=== PATIENT | female | born 1995 | race Caucasian/White ===

== ENCOUNTER → 2016-05-05 | Outpatient (CLI) | payer BC ==
[~2016-05-05] MED LIST: ACET-1256 PO; LEVO1TAB34 PO; OXYC1TAB3 PO; PRED20TA PO; PRVHFAIN INH; TRET0.0522 TOP
== END | disposition home or self-care (01) ==
LOC: C.LABPVFM 10:24
PROVIDERS: ATTEND Nurse Practitioner
DX: N39.0 Urinary tract infection, site not specified (principal)

== ENCOUNTER 2016-11-03 17:51 | Emergency (ER) | payer BC, OTHER ==
[~2016-11-03] VITALS: Ht 170.2 cm; Wt 56.7 kg
[~2016-11-03 17:51] MED LIST changes: -LEVO1TAB34 PO; -OXYC1TAB3 PO; -PRED20TA PO; -PRVHFAIN INH
[2016-11-03 18:05] VITALS: TEMP 37.8; Ht 170.2 cm; Wt 56.7 kg
[2016-11-03] MEDS ORDERED: ALBUT/IPRATROP 3MG/0.5MG NEB 3 ML VIAL INH STA ×2 (18:16→19:52)
--- NOTE | 2016-11-03 19:25 | DIAGNOSTIC IMAGING REPORT ---
CHEST 2 VIEWS ROUTINE CLINICAL HISTORY: 21 years-old Female presenting with eval for pna, cough, chest pain. TECHNIQUE: PA and lateral views of the chest were obtained. COMPARISON: 02/01/2014. FINDINGS: Cardiomediastinal silhouette normal. Lungs and pleural spaces clear. Osseous structures normal. Upper abdomen normal. IMPRESSION: 1. No acute cardiopulmonary disease. Electronically signed by: Fransisco Chaparro M.D. 11/03/2016 7:24 PM Dictated Date/Time: 11/03/2016 7:23 PM
[2016-11-03] MEDS ORDERED: ALBUTEROL HFA 8 GM INHALER INH STA (20:37)
[2016-11-03] MEDS ORDERED: PRED20TA PO (20:38)
[2016-11-03 20:41] VITALS: BP 115/68; PULSE 94; O2SAT 96
--- NOTE | 2016-11-03 20:43 | EMERGENCY ROOM VISIT NOTE ---
History Report prepared by Remigio: Kvng Hoffman Under the Supervision of: Dr. Cleve Ferro M.D. First contact with patient: 18:09 Chief Complaint: FLU LIKE SX Stated Complaint: FLU SYMPTOMS History of Present Illness The patient is a 21 year old female who presents to the Emergency Room with complaints of a persistent illness that started 5 days ago. She says that she has been really weak, with a very tight throat. The patient adds that she has had a hacking cough, and has been running a fever that has been as high as 102. Per the patient's mother, the patient has not been able to sleep or eat. The patient states that she has been unable to eat because of a decreased appetite, and food is not appetizing to her. She denies any vomiting or urinary symptoms. The patient says that she has no chance of . She states that she smokes a half a pack of cigarettes per day. She has no history of asthma. Source of History: patient, parent Onset: 5 days ago Position: other (global - illness) Timing: other (persistent) Associated Symptoms: + fevers, + cough, + weakness, No vomiting, No urinary symptoms Note: Associated symptoms: Very tight throat. Unable to eat or sleep. Review of Systems See HPI for pertinent positives & negatives. A total of 10 systems reviewed and were otherwise negative. Past Medical & Surgical Medical Problems: (1) Bruising (2) Depressive Disorder Nec (3) Nausea, vomiting, and diarrhea (4) PROM (premature rupture of membranes) (5) Supervision of other normal (6) Vomiting Family History No pertinent family history Social History Smoking Status: Current Every Day Smoker Alcohol Use: none Drug Use: none Marital Status: single Housing Status: lives with family Current/Historical Medications Scheduled Prednisone (Prednisone), 3 TAB PO DAILY Allergies Coded Allergies: Nickel (Verified Allergy, Unknown, ., 11/03/16) Penicillins (Verified Allergy, Unknown, 11/03/16) Physical Exam Vital Signs Date Time Temp Pulse Resp B/P (MAP) Pulse Ox O2 Delivery O2 Flow Rate FiO2 11/03/16 20:00 110 19 124/67 95 Room Air 11/03/16 18:05 37.8 109 17 113/77 92 Room Air Physical Exam Constitutional: Vital signs reviewed. Eyes: Pupils are equal round reactive to light. Conjunctiva are noninjected. ENT: Mild erythema to throat without exudate. Mucous membranes are moist. Neck supple without meningeal signs. Respiratory: Bilateral expiratory wheezing. Breath sounds are equal bilaterally. Cardiovascular: Regular rate and rhythm. No rubs or gallops. GI: Soft, nondistended and nontender. Bowel sounds are present. No organomegaly. Musculoskeletal: No peripheral edema. No lower extremity tenderness. Integumentary: No cyanosis. Neurological: The patient is awake and alert. No focal deficits. Psychiatric: Normal affect. Medical Decision & Procedures ER Provider Diagnostic Interpretation: X-ray results as stated below per interpretation by me and the radiologist: CHEST 2 VIEWS ROUTINE CLINICAL HISTORY: 21 years-old Female presenting with eval for pna, cough, chest pain. TECHNIQUE: PA and lateral views of the chest were obtained. COMPARISON: 02/01/2014. FINDINGS: Cardiomediastinal silhouette normal. Lungs and pleural spaces clear. Osseous structures normal. Upper abdomen normal. IMPRESSION: 1. No acute cardiopulmonary disease. Electronically signed by: Fransicso Chaparro M.D. 11/03/2016 7:24 PM Dictated Date/Time: 11/03/2016 7:23 PM Laboratory Results Test 11/03/16 19:50 Laboratory results as reviewed by me. Medications Administered Medications (Trade) Dose Ordered Sig/Julius Route Start Time Stop Time Status Last Admin Dose Admin Albuterol/ Ipratropium (Duoneb) 3 ml NOW STAT INH 11/03/16 18:16 11/03/16 18:17 DC 11/03/16 18:25 3 ML Albuterol/ Ipratropium (Duoneb) 3 ml NOW STAT INH 11/03/16 19:52 11/03/16 19:53 DC 11/03/16 19:57 3 ML Prednisone (PredniSONE TAB) 60 mg NOW STAT PO 11/03/16 19:52 11/03/16 19:53 DC 11/03/16 19:57 60 MG ED Course 1810: The patient was evaluated in room C8. A complete history and physical exam was performed. 1815: Ordered Duoneb 3 ml INH. 1951: I reevaluated the patient and she is still wheezing. I discussed the x- ray with her, and recommended that she stop smoking. Medical Decision This is a 21-year-old female presents with fever, cough and sore throat. Differential diagnosis includes bronchitis, pneumonia, strep pharyngitis, viral syndrome, influenza. I did perform a limited focused review of portions of the patient's old chart on the electronic medical record. The patient has had no recent pertinent visits to this hospital. I did evaluate the patient as noted above. The patient is a smoker and has significant wheezing on exam. She was treated with a DuoNeb. The patient denies any chance of . I did order and personally review the patient' s Chest x-ray as described above. There is no evidence of pneumonia. I did obtain a rapid strep test which was negative. I did reassess the patient. She had continued wheezing and so was treated with another DuoNeb and prednisone 60 mg. I did reassess her again. Her wheezing is improved and her O2 saturations 94%. She is tachycardic from the DuoNebs. She did feel well enough for discharge. I did recommend follow up within 24 hours with her regular doctor. She was given an albuterol MDI and discharged with a prescription for prednisone. A flu swab is currently pending and we will notify her if it comes back positive. She is outside the window for Tamiflu. Medication Reconcilliation Current Medication List: was personally reviewed by me Blood Pressure Screening Patient's blood pressure: Normal blood pressure Impression Primary Impression: Acute bronchitis Additional Impression: Bronchospasm with bronchitis, acute Scribe Attestation The scribe's documentation has been prepared under my direct and personally reviewed by me in its entirety. I confirm that the note above accurately reflects all work, treatment, procedures, and medical decision making performed by me. Departure Information Prescriptions Prednisone (Prednisone) 20 Mg Tab 3 TAB PO DAILY, #12 TAB FOR 4 DAYS Prov: Cleve Ferro M.D. 11/03/16 Referrals No Doctor, Assigned (PCP) Patient Instructions My [facility] Additional Instructions You have been examined and treated today on an emergency basis only. This is not a substitute for, or an effort to provide, complete comprehensive medical care. It is impossible to recognize and treat all injuries or illnesses in a single emergency department visit. It is therefore important that you follow up closely with your physician within 24 hours. Call as soon as possible for an appointment. Return for worsening symptoms or if you develop chest pain, vomiting, or any other concerning symptoms. Problem Qualifiers Primary Impression: Acute bronchitis Bronchitis organism: unspecified organism Qualified Codes: J20.9 - Acute bronchitis, unspecified
[2016-11-13] MEDS ORDERED: PRVHFAIN INH (11:26)
[2016-11-13] MEDS ORDERED: LEVO1TAB34 PO (11:26)
== END 2016-11-03 20:48 | disposition home or self-care (01) ==
LOC: C.EDB 17:52 → C.EDC 20:48
DX: J20.9 Acute bronchitis, unspecified (principal); F17.210 Nicotine dependence, cigarettes, uncomplicated; F32.9 Major depressive disorder, single episode, unspecified

== ENCOUNTER 2016-11-12 00:37 | Inpatient (IN) | payer BC, OTHER ==
[~2016-11-12] VITALS: Ht 170.2 cm; Wt 60.6 kg
[~2016-11-12 00:37] MED LIST changes: -ACET-1256 PO; +PRED20TA PO; -TRET0.0522 TOP
[2016-11-12] MEDS ORDERED: SODIUM CHLORIDE 0.9% 1000ML 1,000 ML IV STA ×3 (01:11→03:40)
[2016-11-12] MEDS ORDERED: ONDANSETRON INJ 2 MG/ML 2 ML VIAL IV STA (01:11)
[2016-11-12 01:47] LABS: BASO % 0.1 %; BASO ABS # 0.01 K/uL (0-0.2); COMPLETE YES; HEMATOCRIT 38.7 % (37-47); IG% 0.3 %; LYMPH % 8.7 %; LYMPH ABS # 1.21 K/uL (1.2-3.4); MEAN CELL VOLUME 89.6 fL (80-100); MEAN CORPUSCULAR HEMOGLOBIN 31.9 pg (25-34); MEAN CORPUSCULAR HGB CONC 35.7 g/dl (32-36); MEAN PLATELET VOLUME 9.9 fL (7.4-10.4); MONO % 7.8 %; NEUT % 83.1 %; PLATELET COUNT 232 K/uL (130-400); RED BLOOD COUNT 4.32 M/uL (4.2-5.4); WHITE BLOOD COUNT 13.84 K/uL (4.8-10.8)
[2016-11-12] MEDS ORDERED: ACETAMINOPHEN IV 100 ML IV STA (01:57)
[2016-11-12 02:12] LABS: ALB/GLOB RATIO 0.4 (0.9-2); ALKALINE PHOSPHATASE 54 U/L (45-117); ALT/SGPT 11 U/L (12-78); BLOOD UREA NITROGEN 10 mg/dl (7-18); BUN/CREATININE RATIO 11.3 (10-20); CARBON DIOXIDE 27 mmol/L (21-32); CHLORIDE 98 mmol/L (98-107); CREATININE 0.89 mg/dl (0.60-1.20); GLUCOSE 111 mg/dl (70-99); SODIUM 132 mmol/L (136-145)
[2016-11-12 03:32] LABS: POTASSIUM 3.5 mmol/L (3.5-5.1)
[2016-11-12 03:48] LABS: URINE APPEARANCE CLOUDY (CLEAR); URINE BILIRUBIN NEG (NEG); URINE COLOR YELLOW; URINE EPITHELIAL CELL AUTO >30 /lpf (0-5); URINE NITRITE POS (NEG); URINE SPECIFIC GRAVITY 1.012 (1.000-1.030); UROBILINOGEN NEG (NEG); ZZUR CULT IF INDIC CLEAN CATCH YES
[2016-11-12 03:54] LABS: MANUAL MICROSCOPIC REQUIRED? NO; REVIEW REQ? NO
--- NOTE | 2016-11-12 04:12 | EMERGENCY ROOM VISIT NOTE ---
History First contact with patient: 01:05 Chief Complaint: NAUSEA Stated Complaint: NAUSEA, DEHYDRATED, 104 TEMP Nursing Triage Summary: patient reports sick for 2 weeks History of Present Illness The patient is a 21 year old female who presents to the Emergency Room with complaints of fever, abdominal pain. The patient states she was seen here 2 weeks ago and diagnosed with bronchitis. She was given steroids and an inhaler. She states that overall the cough seems to be improving but she reports flulike symptoms. She states her temperature at home was 104F. She has been vomiting and unable to eat or keep any fluids down. The patient has not taken any Tylenol or ibuprofen. She states she has also had some urinary symptoms. She complains primarily of flulike symptoms, arthralgias, myalgias and feeling malaise. The patient's family members have had upper respiratory infections but seemed to be improving. Review of Systems A 10 system review of systems was completed with positives and pertinent negatives listed in the HPI. Past Medical/Surgical History Medical Problems: (1) Bronchitis (2) Bruising (3) Depressive Disorder Nec (4) Nausea, vomiting, and diarrhea (5) PROM (premature rupture of membranes) (6) Supervision of other normal (7) Vomiting Family History No pertinent family history Social History Smoking Status: Current Every Day Smoker Alcohol Use: none Drug Use: none Marital Status: single Housing Status: lives with family Current/Historical Medications No Active Prescriptions or Reported Meds Physical Exam Vital Signs Date Time Temp Pulse Resp B/P (MAP) Pulse Ox O2 Delivery O2 Flow Rate FiO2 11/12/16 06:08 67 18 93/64 97 Room Air 11/12/16 04:51 67 18 99/58 99 Room Air 11/12/16 03:25 37.5 86 18 99/49 98 Room Air 11/12/16 00:41 39.5 127 16 111/69 94 Room Air Physical Exam VITALS: Vitals are noted on the nurse's note and reviewed by myself. Vital signs stable. The patient is febrile with a temperature of 39.5C. She is tachycardic. GENERAL: This is a 21-year-old female, in no acute distress, nondiaphoretic, well-developed well-nourished. SKIN: The skin was without rashes, erythema, edema, or bruising. There is no tenting of the skin. Capillary reflex less than 2 seconds. HEAD: Normocephalic atraumatic. EARS: The external ears are normal in appearance. EYES: Pupils equal round and reactive to light and accommodation. Conjunctivae without injection, sclerae without icterus. Extraocular movements intact. NOSE: Patent, turbinates without inflammation or discharge. No sinus tenderness. MOUTH: Mucous membranes moist. Tonsils are not enlarged. Pharynx without erythema or exudate. Uvula midline. Airway patent. Tongue does not deviate. NECK: Supple without nuchal rigidity. No lymphadenopathy. No thyromegaly. Cervical spine is nontender. No JVD. HEART: Regular rate and rhythm without murmurs gallops or rubs. LUNGS: Clear to auscultation bilaterally without wheezes, rales or rhonchi. No dullness to percussion. No retractions or accessory muscle use. ABDOMEN: Positive bowel sounds x 4. Soft, mild diffuse tenderness, nomasses or organomegaly. MUSCULOSKELETAL: No muscle atrophy, erythema, or edema noted. Full range of motion in all extremities. Normal gait. Strength 5/5 throughout. NEURO: Patient was alert and oriented to person place and time. No focal neurological deficits. Medical Decision & Procedures ER Provider Diagnostic Interpretation: ABD/PELVIS IV CONTRAST ONLY CT DOSE: 267.12 mGy.cm HISTORY: Pain. Fever. fever, abdominal pain, UTI TECHNIQUE: Multiaxial CT images of the abdomen and pelvis were performed following the use of intravenous contrast. A dose lowering technique was utilized adhering to the principles of ALARA. COMPARISON STUDY: 02/12/2014 FINDINGS: Minimal dependent basilar atelectasis. Mild splenomegaly. Liver is unremarkable in appearance. Gallbladder slightly contracted. Kidneys are somewhat heterogeneous in terms of enhancement. This raise the possibility of pyelonephritis. There is no evidence for hydronephrosis. Fluid colon as well as small bowel suggesting nonspecific nonobstructive ileus. Intrauterine device is present. Chronic sigmoid diverticulosis. Trace free fluid within the pelvic cul-de-sac possibly physiologic. IMPRESSION: 1. Heterogeneous enhancement of both kidneys raise the possibility of pyelonephritis. 2. Mild reactive bowel ileus. 3. Slightly contracted gallbladder. 4. Chronic sigmoid diverticulosis. 5. Normal appendix. [~ rep ct add3]] CHEST 2 VIEWS ROUTINE CLINICAL HISTORY: cough, fever COMPARISON STUDY: 11/03/2016 FINDINGS: The bones soft tissues and hemidiaphragms are normal. The cardiomediastinal silhouette is normal. The lungs are clear. The pulmonary vasculature is normal. IMPRESSION: Negative chest. Laboratory Results 11/12/16 01:34 Red Blood Count 4.32, Mean Corpuscular Volume 89.6, Mean Corpuscular Hemoglobin 31.9, Mean Corpuscular Hemoglobin Concent 35.7, Mean Platelet Volume 9.9, Neutrophils (%) (Auto) 83.1, Lymphocytes (%) (Auto) 8.7, Monocytes (%) (Auto) 7.8, Eosinophils (%) (Auto) 0.0, Basophils (%) (Auto) 0.1, Neutrophils # (Auto) 11.50, Lymphocytes # (Auto) 1.21, Monocytes # (Auto) 1.08, Eosinophils # (Auto) 0.00, Basophils # (Auto) 0.01 11/12/16 01:34 11/12/16 02:28 Test 11/12/16 01:34 11/12/16 01:52 11/12/16 02:28 11/12/16 03:36 White Blood Count 13.84 K/uL (4.8-10.8) Red Blood Count 4.32 M/uL (4.2-5.4) Hemoglobin 13.8 g/dL (12.0-16.0) Hematocrit 38.7 % (37-47) Mean Corpuscular Volume 89.6 fL (80-100) Mean Corpuscular Hemoglobin 31.9 pg (25-34) Mean Corpuscular Hemoglobin Concent 35.7 g/dl (32-36) Platelet Count 232 K/uL (130-400) Mean Platelet Volume 9.9 fL (7.4-10.4) Neutrophils (%) (Auto) 83.1 % Lymphocytes (%) (Auto) 8.7 % Monocytes (%) (Auto) 7.8 % Eosinophils (%) (Auto) 0.0 % Basophils (%) (Auto) 0.1 % Neutrophils # (Auto) 11.50 K/uL (1.4-6.5) Lymphocytes # (Auto) 1.21 K/uL (1.2-3.4) Monocytes # (Auto) 1.08 K/uL (0.11-0.59) Eosinophils # (Auto) 0.00 K/uL (0-0.5) Basophils # (Auto) 0.01 K/uL (0-0.2) RDW Standard Deviation 44.8 fL (36.4-46.3) RDW Coefficient of Variation 13.5 % (11.5-14.5) Immature Granulocyte % (Auto) 0.3 % Immature Granulocyte # (Auto) 0.04 K/uL (0.00-0.02) Anion Gap 7.0 mmol/L (3-11) Est Creatinine Clear Calc Drug Dose 88.1 ml/min Estimated GFR () 106.6 Estimated GFR (Non- 92.0 BUN/Creatinine Ratio 11.3 (10-20) Lactic Acid Level 0.8 mmol/L (0.4-2.0) Calcium Level 8.0 mg/dl (8.5-10.1) Total Bilirubin 0.7 mg/dl (0.2-1) Alanine Aminotransferase (ALT/SGPT) 11 U/L (12-78) Alkaline Phosphatase 54 U/L (45-117) Total Protein 6.5 gm/dl (6.4-8.2) Albumin 1.8 gm/dl (3.4-5.0) Globulin 4.7 gm/dl (2.5-4.0) Albumin/Globulin Ratio 0.4 (0.9-2) Lipase 60 U/L (73-393) Chemistry Specimen Hemolysis Influenza Type A Antigen Neg for Influ A (NEG) Influenza Type B Antigen Neg for Influ B (NEG) Aspartate Amino Transf (AST/SGOT) 12 U/L (15-37) Urine Color YELLOW Urine Appearance CLOUDY (CLEAR) Urine pH 7.0 (4.5-7.5) Urine Specific [place] 1.012 (1.000-1.030) Urine Protein 2+ (NEG) Urine Glucose (UA) NEG (NEG) Urine Ketones NEG (NEG) Urine Occult Blood 1+ (NEG) Urine Nitrite POS (NEG) Urine Bilirubin NEG (NEG) Urine Urobilinogen NEG (NEG) Urine Leukocyte Esterase SMALL (NEG) Urine WBC (Auto) >30 /hpf (0-5) Urine RBC (Auto) 5-10 /hpf (0-4) Urine Hyaline Casts (Auto) 1-5 /lpf (0-5) Urine Epithelial Cells (Auto) >30 /lpf (0-5) Urine Bacteria (Auto) 4+ (NEG) Urine Test NEG (NEG) Medications Administered Medications (Trade) Dose Ordered Sig/Julius Route Start Time Stop Time Status Last Admin Dose Admin Sodium Chloride 1,000 ml @ 999 mls/hr Q1H1M STAT IV 11/12/16 01:11 11/12/16 02:11 DC 11/12/16 01:49 999 MLS/HR Ondansetron HCl (Zofran Inj) 4 mg NOW STAT IV 11/12/16 01:11 11/12/16 01:14 DC 11/12/16 01:48 4 MG Acetaminophen 100 ml @ 400 mls/hr Q8H STAT IV 11/12/16 01:57 11/12/16 02:11 DC 11/12/16 02:22 400 MLS/HR Sodium Chloride 1,000 ml @ 999 mls/hr Q1H1M STAT IV 11/12/16 01:58 11/12/16 02:58 DC 11/12/16 02:22 999 MLS/HR Sodium Chloride 1,000 ml @ 999 mls/hr Q1H1M STAT IV 11/12/16 03:40 11/12/16 04:40 DC 11/12/16 03:48 999 MLS/HR Aztreonam 2000 mg/ Dextrose 110 ml @ 100 mls/hr ONE STAT IV 11/12/16 04:57 11/12/16 06:02 DC 11/12/16 06:06 100 MLS/HR ED Course The patient was seen and examined. Previous visits were reviewed. The patient was febrile. She has a leukocytosis of 13.84. She does not have any significant electrolyte abnormality. Lipase is not elevated. Urinalysis suggests urinary tract infection. Urine test was negative. Influenza was negative. Chest x-ray does not reveal any acute abnormality CT scan of the abdomen and pelvis with IV contrast reveals pyelonephritis The patient presents to the emergency department with fever, tachycardia, leukocytosis and pyelonephritis. She is vomiting. I do not feel that she will tolerate outpatient management very well. She was hydrated with normal saline solution. She was given IV Zofran. She was given IV Tylenol. She was started azetrenam. The case was discussed with hospitalist service and they will evaluate the patient The case was also discussed with Dr. Rothman who agrees with the assessment and management plan Medical Decision DIFFERENTIAL DIAGNOSIS: Hepatitis, cholecystitis, cholangitis, biliary colic, pancreatitis, pneumonia, subdiaphragmatic abscess, appendicitis, inguinal hernia , nephrolithiasis, inflammatory bowel disease, mesenteric adenitis, peptic ulcer disease, GERD, gastritis, pancreatitis, myocardial infarction, pericarditis, ruptured aortic aneurysm, appendicitis, gastroenteritis, bowel obstruction, splenic infarct, diverticulitis, mesenteric ischemia, metabolic, peritonitis, among others. Medication Reconcilliation Current Medication List: was personally reviewed by me Blood Pressure Screening Patient's blood pressure: Normal blood pressure Blood pressure disposition: Did not require urgent referral Impression Primary Impression: Acute pyelonephritis Departure Information Dispostion Admitted as an inpatient Prescriptions No Active Prescriptions or Reported Meds Referrals No Doctor, Assigned (PCP) [facility]
[2016-11-12] MEDS ORDERED: OPTIRAY 320 IV PRN (04:30)
[2016-11-12] MEDS ORDERED: AZTREONAM IV 2,000 MG in DEXTROSE 5% 100ML 100 ML IV STA (04:57)
[2016-11-12 06:13] LABS: PREG INTERNAL NEGATIVE QC NEG CLEAR BACKGROUND; PREG INTERNAL POSITIVE QC POS CONTROL LINE
[2016-11-12] MEDS ORDERED: ZOLPIDEM TARTRATE 5 MG TAB PO PRN (06:15)
[2016-11-12] MEDS ORDERED: ONDANSETRON INJ 2 MG/ML 2 ML VIAL IV PRN (06:30)
--- NOTE | 2016-11-12 06:43 | History and Physical ---
History & Physical Date & Time of Service: Nov 12, 2016 at 06:36 Chief Complaint: Nausea, Dehydrated, 104 Temp Primary Care Physician: No Doctor, Assigned History of Present Illness Source: patient, family, hospital records The patient is a 21-year-old female who presents emergency department with complaint of fever, abdominal pain, productive cough, generalized myalgias and arthralgias. She was seen in the emergency department 2 weeks ago, diagnosed with bronchitis, and given steroids and inhaler. She's had some improvement in the cough, but is having worsening flulike symptoms, had temperature of 104F at home. She more recently has developed vomiting and is unable to keep food or any fluids down. She is also notes some discomfort with urination. Past Medical/Surgical History Medical Problems: (1) Bruising Status: Resolved (2) Depressive Disorder Nec Status: Chronic (3) Nausea, vomiting, and diarrhea Status: Resolved (4) PROM (premature rupture of membranes) Status: Resolved (5) Supervision of other normal Status: Resolved (6) Vomiting Status: Resolved Family History No pertinent family history Social History Smoking Status: Current Every Day Smoker Smokeless Tobacco Use: No Alcohol Use: none Drug Use: none Marital Status: single Housing status: lives with family Immunizations History of Influenza Vaccine: Unknown History of Tetanus Vaccine?: Unknown History of Pneumococcal: No History of Hepatitis B Vaccine: Unknown Multi-Drug Resistant Organisms History of MDRO: No Allergies Coded Allergies: Nickel (Verified Allergy, Unknown, ., 11/03/16) Penicillins (Verified Allergy, Unknown, 11/03/16) Home Medications No Active Prescriptions or Reported Meds Review of Systems The patient denies palpitations, lower extremity swelling, vision change, hearing change, sore throat, chills, sweats, weight change, diarrhea or constipation, blood in urine or stool, lightheadedness, dizziness, headache, memory loss, rash, abnormal bruising or bleeding, imbalance, focal weakness, numbness or tingling in arms or legs, night sweats. The review of systems is otherwise negative other than for that already noted above, and at least 10 systems have been reviewed. Physical Exam Vital Signs Date Time Temp Pulse Resp B/P (MAP) Pulse Ox O2 Delivery O2 Flow Rate FiO2 11/12/16 06:08 67 18 93/64 97 Room Air 11/12/16 04:51 67 18 99/58 99 Room Air 11/12/16 03:25 37.5 86 18 99/49 98 Room Air 11/12/16 00:41 39.5 127 16 111/69 94 Room Air The patient is awake, well-developed and adequately nourished, alert and oriented 3, normocephalic and atraumatic, looks ill, lying in bed and in no acute distress. HEENT--PERRL, EOMI, mucous membranes and oropharynx dry. Neck--supple, no JVD or bruits, thyroid normal, trachea midline, no adenopathy. Heart--normal S1 and S2, no extra beats, no murmurs, rubs or gallops. Lungs--coarse breath sounds with scattered wheezes bilaterally, no respiratory distress, no accessory muscle use. Abdomen--normal bowel sounds and soft, nontender and nondistended, no hernias or masses, no organomegaly. Extremities--no cyanosis, clubbing or edema. There are good distal pulses b/l. Dermatologic--normal skin turgor, normal color, warm and dry, no abnormal lymph nodes, no rash. Neurologic--cranial nerves II through XII grossly intact, motor and sensory examination normal. Rheumatologic--normal range of motion, nontender, muscles and joints. Psychiatric--normal affect. Diagnostics Laboratory Results Results Past 24 Hours Test 11/12/16 01:34 11/12/16 01:52 11/12/16 02:28 11/12/16 03:36 Range/Units White Blood Count 13.84 4.8-10.8 K/uL Red Blood Count 4.32 4.2-5.4 M/uL Hemoglobin 13.8 12.0-16.0 g/dL Hematocrit 38.7 37-47 % Mean Corpuscular Volume 89.6 80-100 fL Mean Corpuscular Hemoglobin 31.9 25-34 pg Mean Corpuscular Hemoglobin Concent 35.7 32-36 g/dl Platelet Count 232 130-400 K/uL Mean Platelet Volume 9.9 7.4-10.4 fL Neutrophils (%) (Auto) 83.1 % Lymphocytes (%) (Auto) 8.7 % Monocytes (%) (Auto) 7.8 % Eosinophils (%) (Auto) 0.0 % Basophils (%) (Auto) 0.1 % Neutrophils # (Auto) 11.50 1.4-6.5 K/uL Lymphocytes # (Auto) 1.21 1.2-3.4 K/uL Monocytes # (Auto) 1.08 0.11-0.59 K/uL Eosinophils # (Auto) 0.00 0-0.5 K/uL Basophils # (Auto) 0.01 0-0.2 K/uL RDW Standard Deviation 44.8 36.4-46.3 fL RDW Coefficient of Variation 13.5 11.5-14.5 % Immature Granulocyte % (Auto) 0.3 % Immature Granulocyte # (Auto) 0.04 0.00-0.02 K/uL Sodium Level 132 136-145 mmol/L Potassium Level 3.5 3.5-5.1 mmol/L Chloride Level 98 98-107 mmol/L Carbon Dioxide Level 27 21-32 mmol/L Anion Gap 7.0 3-11 mmol/L Blood Urea Nitrogen 10 7-18 mg/dl Creatinine 0.89 0.60-1.20 mg/dl Est Creatinine Clear Calc Drug Dose 88.1 ml/min Estimated GFR () 106.6 Estimated GFR (Non- 92.0 BUN/Creatinine Ratio 11.3 10-20 Random Glucose 111 70-99 mg/dl Lactic Acid Level 0.8 0.4-2.0 mmol/L Calcium Level 8.0 8.5-10.1 mg/dl Total Bilirubin 0.7 0.2-1 mg/dl Aspartate Amino Transf (AST/SGOT) 12 15-37 U/L Alanine Aminotransferase (ALT/SGPT) 11 12-78 U/L Alkaline Phosphatase 54 45-117 U/L Total Protein 6.5 6.4-8.2 gm/dl Albumin 1.8 3.4-5.0 gm/dl Globulin 4.7 2.5-4.0 gm/dl Albumin/Globulin Ratio 0.4 0.9-2 Lipase 60 73-393 U/L Chemistry Specimen Hemolysis Influenza Type A Antigen Neg for Influ A NEG Influenza Type B Antigen Neg for Influ B NEG Urine Color YELLOW Urine Appearance CLOUDY CLEAR Urine pH 7.0 4.5-7.5 Urine Specific [place] 1.012 1.000-1.030 Urine Protein 2+ NEG Urine Glucose (UA) NEG NEG Urine Ketones NEG NEG Urine Occult Blood 1+ NEG Urine Nitrite POS NEG Urine Bilirubin NEG NEG Urine Urobilinogen NEG NEG Urine Leukocyte Esterase SMALL NEG Urine WBC (Auto) >30 0-5 /hpf Urine RBC (Auto) 5-10 0-4 /hpf Urine Hyaline Casts (Auto) 1-5 0-5 /lpf Urine Epithelial Cells (Auto) >30 0-5 /lpf Urine Bacteria (Auto) 4+ NEG Urine Test NEG NEG Microbiology Results 11/12/16 Blood Culture, Received Pending 11/12/16 Blood Culture, Received Pending 11/12/16 Urine Culture, Received Pending Impression Assessment and Plan Bilateral pyelonephritis/cystitis-- Levofloxacin 750 mg IV every 24 hours. Aztreonam 2000 mg IV every 8 hours. Normal saline with KCl 20 mEq at 125 ML's per hour. Follow urine culture and sensitivities. Bronchitis-- Antibiotics as above. Duonebs every 4 hours while awake and every 2 hours when necessary. Level of Care Telemetry Advanced Directives Existing Advance Directive: No Existing Living Will: No Existing Power of Microbiological Laboratory Technician: No Resuscitation Status FULL RESUSCITATION VTE Prophylaxis VTE Risk Assessment Done? Y/N: Yes Risk Level: Moderate Given or contraindicated: SCD's Social Service Consult None Apply
--- NOTE | 2016-11-12 06:47 | DIAGNOSTIC IMAGING REPORT ---
ABD/PELVIS IV CONTRAST ONLY CT DOSE: 267.12 mGy.cm HISTORY: Pain. Fever. fever, abdominal pain, UTI TECHNIQUE: Multiaxial CT images of the abdomen and pelvis were performed following the use of intravenous contrast. A dose lowering technique was utilized adhering to the principles of ALARA. COMPARISON STUDY: 02/12/2014 FINDINGS: Minimal dependent basilar atelectasis. Mild splenomegaly. Liver is unremarkable in appearance. Gallbladder slightly contracted. Kidneys are somewhat heterogeneous in terms of enhancement. This raise the possibility of pyelonephritis. There is no evidence for hydronephrosis. Fluid colon as well as small bowel suggesting nonspecific nonobstructive ileus. Intrauterine device is present. Chronic sigmoid diverticulosis. Trace free fluid within the pelvic cul-de-sac possibly physiologic. IMPRESSION: 1. Heterogeneous enhancement of both kidneys raise the possibility of pyelonephritis. 2. Mild reactive bowel ileus. 3. Slightly contracted gallbladder. 4. Chronic sigmoid diverticulosis. 5. Normal appendix. The above report was generated using voice recognition software. It may contain grammatical, syntax or spelling errors. Electronically signed by: Rashad Tatum M.D. 11/12/2016 6:46 AM Dictated Date/Time: 11/12/2016 6:42 AM
--- NOTE | 2016-11-12 06:58 | DIAGNOSTIC IMAGING REPORT ---
CHEST 2 VIEWS ROUTINE CLINICAL HISTORY: cough, fever COMPARISON STUDY: 11/03/2016 FINDINGS: The bones soft tissues and hemidiaphragms are normal. The cardiomediastinal silhouette is normal. The lungs are clear. The pulmonary vasculature is normal. IMPRESSION: Negative chest. The above report was generated using voice recognition software. It may contain grammatical, syntax or spelling errors. Electronically signed by: Rashad Tatum M.D. 11/12/2016 6:57 AM Dictated Date/Time: 11/12/2016 6:56 AM
[2016-11-12] MEDS: NSS + 20MEQ KCL 1000ML 1,000 ML IV SCH ×3 (08:08→21:10)
[2016-11-12] MEDS: LEVOFLOXACIN / D5W 750 MG in PREMIXED IN D5W 150 ML IV SCH (08:08)
[2016-11-12 08:16] VITALS: BP 100/67; PULSE 63; TEMP 36.5; O2SAT 99; Ht 170.2 cm; Wt 60.6 kg
[2016-11-12] MEDS ORDERED: MoRPHine SULFATE 4 MG/ML 1 ML CARP\\VIAL IV PRN (12:00)
[2016-11-12] MEDS ORDERED: MoRPHine SULFATE 2 MG/ML CARP IV PRN (12:00)
[2016-11-12] MEDS ORDERED: KETOROLAC TROMETHAMINE 30 MG/ML VIAL IV PRN (12:00)
[2016-11-12] MEDS: AZTREONAM IV 2,000 MG in DEXTROSE 5% 100ML 100 ML IV SCH ×2 (14:17→21:10)
[2016-11-12] MEDS: OXYCODONE HCL IR 5 MG TAB (IMMEDIATE RELEASE) PO PRN ×2 (14:39→21:14)
[2016-11-12 15:53] VITALS: BP 98/65; PULSE 72; TEMP 36.8
[2016-11-12 17:39] LABS: INR 1.5 (0.9-1.1); PROTHROMBIN TIME (PATIENT) 16.4 SECONDS (9.0-12.0)
[2016-11-12] MEDS ORDERED: ENOXAPARIN 40 MG/0.4 ML SYR SQ SCH (18:30)
[2016-11-12] MEDS: ACETAMINOPHEN 325 MG TAB PO PRN (19:29)
[2016-11-12 19:38] VITALS: BP 121/73; PULSE 72; TEMP 36.9
[2016-11-12 23:05] VITALS: BP 99/60; PULSE 70; TEMP 36.5
[2016-11-12 23:24] VITALS: PULSE 68; O2SAT 99
[2016-11-12] MEDS: ALBUT/IPRATROP 3MG/0.5MG NEB 3 ML VIAL INH SCH (23:24)
[2016-11-13] VITALS (7 sets, daily range): BP systolic 100–110; BP diastolic 62–75; PULSE 74–99; TEMP 36.4–36.8; O2SAT 99–100
[2016-11-13] MEDS: ALBUT/IPRATROP 3MG/0.5MG NEB 3 ML VIAL INH SCH ×3 (03:39→11:13)
[2016-11-13] MEDS: AZTREONAM IV 2,000 MG in DEXTROSE 5% 100ML 100 ML IV SCH (05:33)
[2016-11-13] MEDS: OXYCODONE HCL IR 5 MG TAB (IMMEDIATE RELEASE) PO PRN (05:34)
[2016-11-13] MEDS: ACETAMINOPHEN 325 MG TAB PO PRN (07:25)
[2016-11-13] MEDS: LEVOFLOXACIN / D5W 750 MG in PREMIXED IN D5W 150 ML IV SCH (07:25)
[2016-11-13] MEDS: NSS + 20MEQ KCL 1000ML 1,000 ML IV SCH (07:25)
[2016-11-13 08:13] LABS: HEMATOCRIT 34.6 % (37-47); MEAN CORPUSCULAR HEMOGLOBIN 30.9 pg (25-34); MEAN CORPUSCULAR HGB CONC 33.5 g/dl (32-36); MEAN PLATELET VOLUME 9.8 fL (7.4-10.4); PLATELET COUNT 223 K/uL (130-400); RED BLOOD COUNT 3.76 M/uL (4.2-5.4); WHITE BLOOD COUNT 8.43 K/uL (4.8-10.8)
[2016-11-13 08:34] LABS: MAGNESIUM 1.8 mg/dl (1.8-2.4)
[2016-11-13 08:40] LABS: COMPLETE YES; ECHINOCYTES 1+; EOS % 0.5 %; IG% 0.2 %; LYMPH % 14.8 %; LYMPH ABS # 1.25 K/uL (1.2-3.4); MONO % 5.9 %; NEUT % 78.6 %
[2016-11-13] MEDS ORDERED: PRVHFAIN INH (11:26)
[2016-11-13] MEDS ORDERED: LEVO1TAB34 PO (11:26)
--- NOTE | 2016-11-13 11:27 | Discharge Instructions ---
Discharge Instructions Date of Service Nov 13, 2016. Admission Reason for Admission: Acute Pyelonephritis, Bronchitis Discharge Discharge Diagnosis / Problem: pyelonephritis Discharge Goals Goal(s): Diagnostic testing, Therapeutic intervention Activity Recommendations Activity Limitations: resume your previous activity . Current Hospital Diet Patient's current hospital diet: Regular Diet Discharge Diet Recommended Diet: Regular Diet Pending Studies Studies pending at discharge: yes List of pending studies: urine culture Medical Emergencies . Who to Call and When: Medical Emergencies: If at any time you feel your situation is an emergency, please call 911 immediately. . Non-Emergent Contact Non-Emergency issues call your: Primary Care Provider Call Non-Emergent contact if: temperature is above 101, your pain is unusual for you . . "Provider Documentation" section prepared by Cleve Cadena. . VTE Core Measure Inpt VTE Proph given/why not?: SCD's
--- NOTE | 2016-11-13 15:42 | Discharge Summary ---
Discharge Summary Date of Service Nov 13, 2016. Discharge Summary Admission Date: Nov 12, 2016 at 06:15 Discharge Date: Nov 13, 2016 Discharge Disposition: Home Principal Diagnosis: e coli pyelonephritis Problems/Secondary Diagnoses: (1) Depressive Disorder Nec Status: Chronic Immunizations: Have You Had Influenza Vaccine: Unknown History of Tetanus Vaccine?: Unknown History of Pneumococcal: No History of Hepatitis B Vaccine: Unknown Medication Reconciliation New Medications: Albuterol (Ventolin Hfa) 60 Puffs/5400 Mcg Aers 2 INHA INH QID for Shortness of Breath, #1 INHA Levofloxacin (Levaquin) 500 Mg Tab 1 TAB PO DAILY for 8 Days, #8 TAB Discharge Exam Review of Systems: Constitutional: No fever, No chills Respiratory: No cough, No sputum Cardiovascular: No chest pain, No orthopnea Abdomen: + pain (minor) Physical Exam: General Appearance: WD/WN, + mild distress Respiratory/Chest: chest non-tender, lungs clear, normal breath sounds Abdomen / GI: normal bowel sounds, non tender, soft Hospital Course 21 F with pyelonephritis, improved much on levaquin, breathing has improved and pt states will quit smoking, will have home on levaquin, offered pain medicine and pt refused, Total Time Spent: Less than 30 minutes This includes examination of the patient, discharge planning, medication reconciliation, and communication with other providers. Discharge Instructions Please refer to the electronic Patient Visit Report (Discharge Instructions) for additional information.
--- NOTE | 2016-12-11 17:04 | Progress Note ---
Subjective Date of Service: Nov 12, 2016. Subjective This patient was admitted with a febrile illness, CT changes of possible pyelonephritis and bilateral lower abdominal pain. The patient has no vaginal discharge or drainage and typically has a IUD in place. She has been amenorrheic for 3 years. Patient states that the pain is worse in her back left side greater than right. CT scan did not show any changes of her ovaries or fallopian tubes. She has had no dysuria hematuria or pyuria. She does have a cough rectum of mucus however her initial chest x-ray was negative she is currently on antibiotics waiting culture results next Her only complaints are lower abdominal pain rated 8/10 dull bilateral lower quadrants left greater than right Problem List Medical Problems: (1) Acute bronchitis Status: Acute (2) Acute pyelonephritis Status: Acute (3) Bronchospasm with bronchitis, acute Status: Acute (4) Depressive Disorder Nec Status: Chronic Review of Systems Constitutional: + chills, + weakness, No fever Respiratory: No cough, No sputum Cardiac: No chest pain, No orthopnea Abdomen: + pain, No nausea, No vomiting Objective Vital Signs Date Time Temp Pulse Resp B/P (MAP) Pulse Ox O2 Delivery O2 Flow Rate FiO2 11/12/16 12:00 Room Air 11/12/16 08:16 36.5 63 18 100/67 99 Room Air 11/12/16 08:00 Room Air 11/12/16 07:05 60 18 90/55 98 11/12/16 06:08 67 18 93/64 97 Room Air 11/12/16 04:51 67 18 99/58 99 Room Air 11/12/16 03:25 37.5 86 18 99/49 98 Room Air 11/12/16 00:41 39.5 127 16 111/69 94 Room Air Physical Exam General Appearance: WD/WN, + mild distress, + thin Respiratory/Chest: chest non-tender, lungs clear, normal breath sounds Cardiovascular: regular rate, rhythm, no murmur Abdomen: normal bowel sounds, soft, + guarding, + tenderness Extremities: no pedal edema, no calf tenderness Neurologic/Psychiatric: alert, oriented x 3 Laboratory Results Last 24 Hours Test 11/12/16 01:34 11/12/16 01:52 11/12/16 02:28 11/12/16 03:36 White Blood Count 13.84 K/uL Red Blood Count 4.32 M/uL Hemoglobin 13.8 g/dL Hematocrit 38.7 % Mean Corpuscular Volume 89.6 fL Mean Corpuscular Hemoglobin 31.9 pg Mean Corpuscular Hemoglobin Concent 35.7 g/dl Platelet Count 232 K/uL Mean Platelet Volume 9.9 fL Neutrophils (%) (Auto) 83.1 % Lymphocytes (%) (Auto) 8.7 % Monocytes (%) (Auto) 7.8 % Eosinophils (%) (Auto) 0.0 % Basophils (%) (Auto) 0.1 % Neutrophils # (Auto) 11.50 K/uL Lymphocytes # (Auto) 1.21 K/uL Monocytes # (Auto) 1.08 K/uL Eosinophils # (Auto) 0.00 K/uL Basophils # (Auto) 0.01 K/uL RDW Standard Deviation 44.8 fL RDW Coefficient of Variation 13.5 % Immature Granulocyte % (Auto) 0.3 % Immature Granulocyte # (Auto) 0.04 K/uL Sodium Level 132 mmol/L Potassium Level mmol/L 3.5 mmol/L Chloride Level 98 mmol/L Carbon Dioxide Level 27 mmol/L Anion Gap 7.0 mmol/L Blood Urea Nitrogen 10 mg/dl Creatinine 0.89 mg/dl Est Creatinine Clear Calc Drug Dose 88.1 ml/min Estimated GFR () 106.6 Estimated GFR (Non- 92.0 BUN/Creatinine Ratio 11.3 Random Glucose 111 mg/dl Lactic Acid Level 0.8 mmol/L Calcium Level 8.0 mg/dl Total Bilirubin 0.7 mg/dl Aspartate Amino Transf (AST/SGOT) U/L 12 U/L Alanine Aminotransferase (ALT/SGPT) 11 U/L Alkaline Phosphatase 54 U/L Total Protein 6.5 gm/dl Albumin 1.8 gm/dl Globulin 4.7 gm/dl Albumin/Globulin Ratio 0.4 Lipase 60 U/L Chemistry Specimen Hemolysis Influenza Type A Antigen Neg for Influ A Influenza Type B Antigen Neg for Influ B Urine Color YELLOW Urine Appearance CLOUDY Urine pH 7.0 Urine Specific [place] 1.012 Urine Protein 2+ Urine Glucose (UA) NEG Urine Ketones NEG Urine Occult Blood 1+ Urine Nitrite POS Urine Bilirubin NEG Urine Urobilinogen NEG Urine Leukocyte Esterase SMALL Urine WBC (Auto) >30 /hpf Urine RBC (Auto) 5-10 /hpf Urine Hyaline Casts (Auto) 1-5 /lpf Urine Epithelial Cells (Auto) >30 /lpf Urine Bacteria (Auto) 4+ Urine Test NEG Assessment and Plan 21-year-old female with possible pyelonephritis plus minus bronchitis She has a penicillin allergy so aztreonam and levofloxacin were selected by the admitting physician urine and blood cultures are pending. Given her amenorrhea there can be some concern for a vaginitis or other vaginal infection. If she has no good resolution we may consider QUALITY TECHNICIAN consultation for exam Abdominal pain is significant will attempt use Toradol at this is not work use parenteral opiates DVT prevention will be initiated with chemoprophylaxis given the pelvic inflammation may occur from her pyelonephritis
== END 2016-11-13 13:45 | disposition home or self-care (01) | DRG 690 ==
LOC: C.EDB 00:39 → C.MED 06:15 → ENRESERV 06:38
PROVIDERS: ADMIT Hospitalist; ATTEND Internal Medicine
DX: N10 Acute pyelonephritis (principal); F17.200 Nicotine dependence, unspecified, uncomplicated; E86.0 Dehydration; F32.9 Major depressive disorder, single episode, unspecified; B96.20 Unspecified Escherichia coli [E. coli] as the cause of diseases classified elsewhere

== ENCOUNTER → 2017-05-09 | Outpatient (CLI) | payer BC, OTHER ==
[~2017-05-09] MED LIST changes: -PRED20TA PO; +PRVHFAIN INH
== END | disposition home or self-care (01) ==
LOC: C.LABSPEC 16:19
PROVIDERS: ATTEND Physician Assistant
DX: N89.8 Other specified noninflammatory disorders of vagina (principal)

== ENCOUNTER 2017-07-25 16:58 | Emergency (ER) | payer BC, OTHER ==
[~2017-07-25] VITALS: Ht 170.2 cm; Wt 57.6 kg
[2017-07-25 17:07] VITALS: TEMP 36.9; Ht 170.2 cm; Wt 57.6 kg
--- NOTE | 2017-07-25 17:39 | EMERGENCY ROOM VISIT NOTE ---
History Report prepared by Remigio: Lilly Orta Under the Supervision of: Dr. Everardo Bowie M.D. First contact with patient: 17:13 Chief Complaint: MENTAL HEALTH EVALUATION Stated Complaint: MENTAL EVALUATION History of Present Illness The patient is a 22 year old female who presents to the Emergency Room with a mental health evaluation today. The patient states that a week ago she had a mental breakdown and stated that she wanted to kill herself and states that she is mad that it is just getting to the police today. She states that she was not actually going to kill herself. The patient states that she does not believe that she has a mood disorder but that she has two kids and has a lot going on. 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 She states that she has been to several different rehabilitation centers. She denies suicidal and homicidal ideation. Per mother, the patient has been diagnosed with bipolar disorder years ago but does not take her medications for it. Her mother states that she thinks that the patient is getting worse and that some days the patient will be great and other days she is a monster. Per mother, the patient gets it in her head that it is not worth living anymore. Her mother states that she has custody of the patient's 2 children. Her mother states that the patient has never tried to kill herself, but that she threatens it a lot. Per mother, the patient has also been very angry and her mother states that she gets scared of the patient. Her mother states that the patient does not sleep often and when she goes awhile without sleeping, she crashes for several days. Per mother, the patient does not threaten the children. Her mother states that the last time the patient talked to anyone for mental health was when the patient was in rehabilitation for drug addiction one year ago. Her mother states that the patient used heroin in the past. Her mother states that the patient always says that "she wants to kill herself" but that she never states how she would do it. Per mother, something made the patient mad today and that the situation escalated before the patient calmed down. Her mother states that she called [facility] line today. Source of History: patient, parent (mother ) Onset: today Position: other (generalized ) Quality: other (mental health evaluation ) Timing: constant Review of Systems See HPI for pertinent positives & negatives. A total of 10 systems reviewed and were otherwise negative. Past Medical & Surgical Medical Problems: (1) Bipolar disorder (2) Bronchitis (3) Bruising (4) Depressive Disorder Nec (5) Nausea, vomiting, and diarrhea (6) PROM (premature rupture of membranes) (7) Supervision of other normal (8) Vomiting Family History No pertinent family history Social History Smoking Status: Never Smoker Alcohol Use: none Drug Use: none Marital Status: single Housing Status: lives with family Current/Historical Medications Scheduled Nitrofurantoin Monohyd Macrocr (Macrobid), 100 MG PO BID Scheduled PRN Albuterol Hfa (Ventolin Hfa), 2 PUFFS INH Q6H PRN for SOB/Wheezing Allergies Coded Allergies: Nickel (Verified Allergy, Unknown, ., 07/25/17) Penicillins (Verified Allergy, Unknown, 07/25/17) Physical Exam Vital Signs Date Time Temp Pulse Resp B/P (MAP) Pulse Ox O2 Delivery O2 Flow Rate FiO2 07/25/17 19:51 98 18 124/88 98 07/25/17 17:07 36.9 114 18 152/84 98 Room Air Physical Exam GENERAL: Awake, alert, well-appearing, in no acute distress HENT: Normocephalic, atraumatic. Oropharynx unremarkable. EYES: Normal conjunctiva. Sclera non-icteric. NECK: Supple. No nuchal rigidity. FROM. No JVD. RESPIRATORY: Clear to auscultation. CARDIAC: Regular rate, normal rhythm. Extremities warm and well perfused. Pulses equal. ABDOMEN: Soft, non-distended. No tenderness to palpation. No rebound or guarding. No masses. RECTAL: Deferred. MUSCULOSKELETAL: Chest examination reveals no tenderness. The back is symmetrical on inspection without obvious abnormality. There is no CVA tenderness to palpation. No joint edema. LOWER EXTREMITIES: Calves are equal size bilaterally and non-tender. No edema. No discoloration. NEURO: Normal sensorium. No sensory or motor deficits noted. SKIN: No rash or jaundice noted. PSYCH: Denies SI and HI. Medical Decision & Procedures Laboratory Results 07/25/17 17:43 Red Blood Count 4.63, Mean Corpuscular Volume 90.9, Mean Corpuscular Hemoglobin 32.0, Mean Corpuscular Hemoglobin Concent 35.2, Mean Platelet Volume 9.1, Neutrophils (%) (Auto) 70.4, Lymphocytes (%) (Auto) 24.6, Monocytes (%) (Auto) 3.5, Eosinophils (%) (Auto) 1.0, Basophils (%) (Auto) 0.3, Neutrophils # (Auto) 4.40, Lymphocytes # (Auto) 1.54, Monocytes # (Auto) 0.22, Eosinophils # (Auto) 0.06, Basophils # (Auto) 0.02 07/25/17 17:43 Test 07/25/17 17:30 07/25/17 17:43 Urine Color YELLOW Urine Appearance CLEAR (CLEAR) Urine pH >= 9.0 (4.5-7.5) Urine Specific [place] 1.012 (1.000-1.030) Urine Protein NEG (NEG) Urine Glucose (UA) NEG (NEG) Urine Ketones NEG (NEG) Urine Occult Blood NEG (NEG) Urine Nitrite NEG (NEG) Urine Bilirubin NEG (NEG) Urine Urobilinogen NEG (NEG) Urine Leukocyte Esterase SMALL (NEG) Urine WBC (Auto) 5-10 /hpf (0-5) Urine RBC (Auto) 0-4 /hpf (0-4) Urine Hyaline Casts (Auto) 1-5 /lpf (0-5) Urine Epithelial Cells (Auto) >30 /lpf (0-5) Urine Bacteria (Auto) 1+ (NEG) Urine Test NEG (NEG) Urine Opiates Screen POS (NEG) Urine Methadone, Qualitative NEG (NEG) Urine Barbiturates NEG (NEG) Urine Phencyclidine (PCP) Level NEG (NEG) Ur Amphetamine/Methamphetamine NEG (NEG) MDMA (Ecstasy) Screen NEG (NEG) Urine Benzodiazepines Screen NEG (NEG) Urine Cocaine Metabolite NEG (NEG) Urine Marijuana (THC) NEG (NEG) White Blood Count 6.25 K/uL (4.8-10.8) Red Blood Count 4.63 M/uL (4.2-5.4) Hemoglobin 14.8 g/dL (12.0-16.0) Hematocrit 42.1 % (37-47) Mean Corpuscular Volume 90.9 fL (80-100) Mean Corpuscular Hemoglobin 32.0 pg (25-34) Mean Corpuscular Hemoglobin Concent 35.2 g/dl (32-36) Platelet Count 185 K/uL (130-400) Mean Platelet Volume 9.1 fL (7.4-10.4) Neutrophils (%) (Auto) 70.4 % Lymphocytes (%) (Auto) 24.6 % Monocytes (%) (Auto) 3.5 % Eosinophils (%) (Auto) 1.0 % Basophils (%) (Auto) 0.3 % Neutrophils # (Auto) 4.40 K/uL (1.4-6.5) Lymphocytes # (Auto) 1.54 K/uL (1.2-3.4) Monocytes # (Auto) 0.22 K/uL (0.11-0.59) Eosinophils # (Auto) 0.06 K/uL (0-0.5) Basophils # (Auto) 0.02 K/uL (0-0.2) RDW Standard Deviation 42.5 fL (36.4-46.3) RDW Coefficient of Variation 12.9 % (11.5-14.5) Immature Granulocyte % (Auto) 0.2 % Immature Granulocyte # (Auto) 0.01 K/uL (0.00-0.02) Anion Gap 3.0 mmol/L (3-11) Est Creatinine Clear Calc Drug Dose 122.4 ml/min Estimated GFR () 145.0 Estimated GFR (Non- 125.1 BUN/Creatinine Ratio 8.7 (10-20) Calcium Level 8.9 mg/dl (8.5-10.1) Total Bilirubin 0.4 mg/dl (0.2-1) Direct Bilirubin 0.1 mg/dl (0-0.2) Aspartate Amino Transf (AST/SGOT) 21 U/L (15-37) Alanine Aminotransferase (ALT/SGPT) 28 U/L (12-78) Alkaline Phosphatase 65 U/L (45-117) Total Protein 8.0 gm/dl (6.4-8.2) Albumin 3.3 gm/dl (3.4-5.0) Thyroid Stimulating Hormone (TSH) 0.227 uIu/ml (0.300-4.500) Ethyl Alcohol mg/dL < 3.0 mg/dl (0-3) Labs reviewed by ED physician. Medications Administered Medications (Trade) Dose Ordered Sig/Julius Route Start Time Stop Time Status Last Admin Dose Admin Nitrofurantoin Macrocrystals (Macrobid Cap) 100 mg NOW STAT PO 07/25/17 18:23 07/25/17 18:25 DC 07/25/17 18:37 100 MG ED Course 1718: We discussed the patient's case with her mother. 1729: Past medical records reviewed. The patient was evaluated in room A6. A complete history and physical examination was performed. 1822: Ordered Macrobid Cap 100 mg PO. 1827: I checked on the patient. 1944: Upon reexamination the patient is resting. I discussed results and treatment plan with the patient. She verbalizes agreement and understanding. The patient is ready for discharge. Medical Decision Differential diagnosis: Etiologies such as mood disorder, infection, hypoglycemia, electrolyte abnormalities, cardiac sources, intracerebral event, toxicologic, neurologic, as well as others were entertained. This is a 22-year-old female who presents the emergency department under a 302 petition. I will note that the 302 was issued 1 week prior to the patient coming in and she has been safe all week. The patient denies being suicidal homicidal. She does admit to drug use I did offer rehabilitation to the patient however she is refusing. She was medically cleared by me however I will place the patient on an antibiotic for what appears to be a UTI. Case management did meet independently with both patient and her mother and they both felt the patient could be safely discharged home. Mother at this point also feels that the patient is not a threat to herself and the patient denies being suicidal homicidal. They will return to the emergency department if her symptoms worsen. Medication Reconcilliation Current Medication List: was personally reviewed by me Blood Pressure Screening Patient's blood pressure: Elevated blood pressure Blood pressure disposition: Referred to PCP Impression Primary Impression: Mood disorder Additional Impression: UTI (urinary tract infection) Scribe Attestation The scribe's documentation has been prepared under my direction and personally reviewed by me in its entirety. I confirm that the note above accurately reflects all work, treatment, procedures, and medical decision making performed by me. Departure Information Dispostion Home / Self-Care Prescriptions Nitrofurantoin Monohyd Macrocr (Macrobid) 100 Mg Cap 100 MG PO BID for 7 Days, #14 CAP Prov: Everardo Bowie MD 07/25/17 Referrals Mary Chinchilla, C.R.N.P (PCP) Patient Instructions My [facility] Additional Instructions You have been examined and treated today on an emergency basis only. This is not a substitute for, or an effort to provide, complete comprehensive medical care. It is impossible to recognize and treat all injuries or illnesses in a single emergency department visit. It is therefore important that you follow up closely with Dr Chinchilla. Call as soon as possible for an appointment. Thank you for your time and consideration. I look forward to speaking with you again soon. Please don't hesitate to call us if you have any questions. Problem Qualifiers Additional Impression: UTI (urinary tract infection) Urinary tract infection type: acute cystitis Hematuria presence: without hematuria Qualified Codes: N30.00 - Acute cystitis without hematuria
[2017-07-25 17:54] LABS: BASO % 0.3 %; BASO ABS # 0.02 K/uL (0-0.2); EOS ABS # 0.06 K/uL (0-0.5); HEMATOCRIT 42.1 % (37-47); HEMOGLOBIN 14.8 g/dL (12.0-16.0); IG# 0.01 K/uL (0.00-0.02); LYMPH % 24.6 %; LYMPH ABS # 1.54 K/uL (1.2-3.4); MEAN CELL VOLUME 90.9 fL (80-100); MEAN CORPUSCULAR HGB CONC 35.2 g/dl (32-36); MEAN PLATELET VOLUME 9.1 fL (7.4-10.4); MONO % 3.5 %; MONO ABS # 0.22 K/uL (0.11-0.59); NEUT % 70.4 %; PLATELET COUNT 185 K/uL (130-400); RED CELL DISTRIBUTION WIDTH CV 12.9 % (11.5-14.5); RED CELL DISTRIBUTION WIDTH SD 42.5 fL (36.4-46.3); WHITE BLOOD COUNT 6.25 K/uL (4.8-10.8)
[2017-07-25] MEDS ORDERED: VNTHFA/IN INH (18:04)
[2017-07-25 18:23] LABS: ALBUMIN 3.3 gm/dl (3.4-5.0); CALCIUM 8.9 mg/dl (8.5-10.1); CREATININE 0.65 mg/dl (0.60-1.20); POTASSIUM 4.1 mmol/L (3.5-5.1)
[2017-07-25] MEDS ORDERED: NITROFURANTOIN MONOHYDRATE 100 MG CAP PO STA (18:23)
[2017-07-25 19:51] VITALS: BP 124/88; PULSE 98; O2SAT 98
[2017-07-25] MEDS ORDERED: NITR-5 PO (19:51)
== END 2017-07-25 19:53 | disposition home or self-care (01) ==
LOC: C.EDB 16:59 → C.EDA 19:53
DX: Z00.8 Encounter for other general examination (principal); F32.9 Major depressive disorder, single episode, unspecified; N39.0 Urinary tract infection, site not specified; F11.20 Opioid dependence, uncomplicated